=== PATIENT | female | born 1935 | race Caucasian/White ===

== ENCOUNTER → 2025-08-14 08:58 | Outpatient (CLI) | payer MEDICARE, OTHER, SELFPAY | PROVIDERS: Family Provider Internal Medicine; PCP Internal Medicine; Referring Provider Physician Assistant Medical; Visit Provider Surgery | DX: L59.8 Other specified disorders of the skin and subcutaneous tissue related to radiation (principal); S01.00XA Unspecified open wound of scalp, initial encounter; I87.2 Venous insufficiency (chronic) (peripheral); L97.822 Non-pressure chronic ulcer of other part of left lower leg with fat layer exposed; L97.812 Non-pressure chronic ulcer of other part of right lower leg with fat layer exposed; L98.8 Other specified disorders of the skin and subcutaneous tissue; R60.0 Localized edema | CPT/HCPCS: 11042; 11045; 87070; 87075; 87077; 87186; 87205; 99204; 99214 ==

== ENCOUNTER → 2025-08-17 12:29 | Outpatient (CLI) | payer MEDICARE, SELFPAY ==
--- NOTE | 2025-08-17 12:34 | DI.RAD.S_ITS ---
PROCEDURE: XR SKULL<4V INDICATIONS: eval for osteo TECHNIQUE: 3 view(s) of the skull acquired. COMPARISON: None. FINDINGS AND IMPRESSION: Ill-defined lucencies are seen at the outer and inner tables at vertex of the calvarium, most apparent on lateral view. Infection remains possible by imaging. MRI is the ideal imaging modality for the clinical indication. Dictated by: Isiah Lloyd M.D. on 08/19/2025 at 8:47 Approved by: Isiah Lloyd M.D. on 08/19/2025 at 8:50
== END ==
LOC: RAD 12:33
PROVIDERS: Family Provider Internal Medicine; PCP Internal Medicine; Referring Provider Surgery; Visit Provider Surgery
DX: L98.494 Non-pressure chronic ulcer of skin of other sites with necrosis of bone (principal)
CPT/HCPCS: 70250

== ENCOUNTER → 2025-08-21 11:04 | Outpatient (CLI) | payer MEDICARE, SELFPAY | PROVIDERS: Family Provider Internal Medicine; PCP Internal Medicine; Referring Provider Internal Medicine; Visit Provider Surgery | DX: L59.8 Other specified disorders of the skin and subcutaneous tissue related to radiation (principal); S01.00XA Unspecified open wound of scalp, initial encounter; I87.2 Venous insufficiency (chronic) (peripheral); L97.822 Non-pressure chronic ulcer of other part of left lower leg with fat layer exposed; L97.812 Non-pressure chronic ulcer of other part of right lower leg with fat layer exposed; R60.0 Localized edema; L98.8 Other specified disorders of the skin and subcutaneous tissue; L53.8 Other specified erythematous conditions; I10 Essential (primary) hypertension | CPT/HCPCS: 11042; 11045; 99213 ==

== ENCOUNTER → 2025-08-21 12:23 | Outpatient (CLI) | payer MEDICARE, SELFPAY ==
--- NOTE | 2025-08-21 12:26 | DI.RAD.S_ITS ---
PROCEDURE: XR CHEST 2V INDICATIONS: hyperbaric oxygen therapy clearance TECHNIQUE: 2 views of the chest were acquired. COMPARISON: None. FINDINGS: Surgical changes and devices: Left subclavian pacemaker, terminates in the right atrium and the right ventricular apex. Lungs and pleura: Small bilateral pleural effusion. No pneumothorax, pulmonary edema, or focal consolidation. Mediastinum: Marked cardiomegaly. Bones and chest wall: Multiple mild anterior compression deformity of the midthoracic spine, incompletely evaluated. Moderate levoscoliosis at the thoracolumbar junction. IMPRESSION: As above. Dictated by: Mavis Faust M.D. on 08/21/2025 at 17:42 Approved by: Mavis Faust M.D. on 08/21/2025 at 17:44
[2025-08-21 13:15] LABS: Add Manual Diff / Slide Review NO; Hematocrit 47.3 % (36-46); Hemoglobin 15.9 g/dL (12.0-16.0); Lymphocytes Absolute Auto 2400 /uL (1100-4500); Mean Corpuscular HGB Conc 33.6 % (30-36); Mean Corpuscular Hemoglobin 31.7 PG (26-34); Mean Corpuscular Volume 94.3 fL (80-100); Platelet Count 244 X10^3/uL (150-400)
[2025-08-21 13:45] LABS: Alanine Aminotransferase 19 IU/L (<35); Albumin 4.1 g/dL (3.5-5.0); Albumin Globulin Ratio 1.3 (1.0-2.8); Alkaline Phosphatase 113 U/L (38-126); Blood Urea Nitrogen 42 mg/dL (7-17); Calcium 9.2 mg/dL (8.4-10.2); Carbon Dioxide 27 mmol/L (22-32); Chloride 101 mmol/L (98-107); Estimated Glomerular Filt Rate 49 mL/min (>60); Globulin 3.2 g/dL (1.7-4.1); Glucose 78 mg/dL (70-99); HEMOLYSIS 37 (0-50); Potassium 4.2 mmol/L (3.4-5.1); Sodium 137 mmol/L (137-145); Total Protein 7.3 g/dL (6.3-8.2)
== END ==
PROVIDERS: Family Provider Internal Medicine; PCP Internal Medicine; Referring Provider Internal Medicine; Visit Provider Surgery
DX: J90 Pleural effusion, not elsewhere classified (principal); J98.4 Other disorders of lung; S01.00XA Unspecified open wound of scalp, initial encounter; I51.7 Cardiomegaly; M41.9 Scoliosis, unspecified; M43.8X4 Other specified deforming dorsopathies, thoracic region; Z95.0 Presence of cardiac pacemaker
CPT/HCPCS: 36415; 71046; 80053; 85025; 85651; 86140

== ENCOUNTER → 2025-08-29 11:59 | Outpatient (CLI) | payer MEDICARE, SELFPAY ==
--- NOTE | 2025-08-29 12:01 | DI.US.S_ITS ---
PROCEDURE: US ARTERIAL DUPLEX LE BI INDICATIONS: non-healing ulcers to bilateral lower legs, PAD noted on SHELLI TECHNIQUE: Color and pulse Doppler interrogation was performed of both lower extremity arterial systems, with image documentation. COMPARISON: None. FINDINGS: Right lower extremity: Common femoral artery: 52 cm/sec, with biphasic flow. Deep femoral artery: 50 cm/sec, with 49 flow. Proximal superficial femoral artery: 49 cm/sec, with biphasic flow. Mid superficial femoral artery: 49 cm/sec, with biphasic flow. Distal superficial femoral artery: 53 cm/sec, with biphasic flow. Popliteal artery: 23 cm/sec, with biphasic flow. Posterior tibial artery: 15 cm/sec, with monophasic flow. Anterior tibial artery/dorsalis pedis: 67 cm/sec, with monophasic flow. Munoz-scale imaging description: Mild degree of diffuse plaque throughout the lower extremity arterial system. Left lower extremity: Common femoral artery: 55 cm/sec, with biphasic flow. Deep femoral artery: 64 cm/sec, with triphasic flow. Proximal superficial femoral artery: 68 cm/sec, with biphasic flow. Mid superficial femoral artery: 69 cm/sec, with triphasic flow. Distal superficial femoral artery: 61 cm/sec, with biphasic flow. Popliteal artery: 39 cm/sec, with triphasic flow. Posterior tibial artery: Not well visualized. Anterior tibial artery/dorsalis pedis: 68 cm/sec, with monophasic flow. Munoz-scale imaging description: Mild degree of diffuse plaque throughout the left lower extremity arterial system IMPRESSION: 1. No hemodynamically significant stenosis involving bilateral lower extremity arterial systems. 2. Monophasic signals throughout tibial arteries bilaterally likely related to diffuse disease. Dictated by: Neftali Urbina M.D. on 08/30/2025 at 13:34 Approved by: Neftali Urbina M.D. on 08/30/2025 at 13:40
== END ==
PROVIDERS: Family Provider Internal Medicine; PCP Internal Medicine; Referring Provider Surgery; Visit Provider Surgery
DX: S81.801A Unspecified open wound, right lower leg, initial encounter (principal)
CPT/HCPCS: 93925

== ENCOUNTER → 2025-08-29 13:55 | Outpatient (CLI) | payer MEDICARE, SELFPAY | PROVIDERS: Family Provider Internal Medicine; PCP Internal Medicine; Referring Provider Internal Medicine; Visit Provider Surgery | DX: L59.8 Other specified disorders of the skin and subcutaneous tissue related to radiation (principal); S01.00XA Unspecified open wound of scalp, initial encounter; I87.2 Venous insufficiency (chronic) (peripheral); L97.812 Non-pressure chronic ulcer of other part of right lower leg with fat layer exposed; L97.822 Non-pressure chronic ulcer of other part of left lower leg with fat layer exposed; L08.9 Local infection of the skin and subcutaneous tissue, unspecified; L98.8 Other specified disorders of the skin and subcutaneous tissue | CPT/HCPCS: 11042; 11045; 97597 ==